=== PATIENT | female | born 1945 | race Caucasian/White ===

== ENCOUNTER → 2016-09-07 | Outpatient (CLI) | payer OTHER, BC ==
[2016-09-07 17:54] LABS: MANUAL MICROSCOPIC REQUIRED? NO; REVIEW REQ? NO; URINE APPEARANCE CLEAR (CLEAR); URINE BILIRUBIN NEG (NEG); URINE COLOR YELLOW; URINE NITRITE NEG (NEG); URINE SPECIFIC GRAVITY 1.012 (1.000-1.030); UROBILINOGEN NEG (NEG)
[2016-09-07 18:21] LABS: ALT/SGPT 21 U/L (12-78); AMYLASE 35 U/L (25-115); AST/SGOT 11 U/L (15-37); BLOOD UREA NITROGEN 12 mg/dl (7-18); BUN/CREATININE RATIO 13.3 (10-20); CALCIUM 9.2 mg/dl (8.5-10.1); CARBON DIOXIDE 29 mmol/L (21-32); CHLORIDE 106 mmol/L (98-107); CREATININE 0.87 mg/dl (0.60-1.20); GLUCOSE 93 mg/dl (70-99); POTASSIUM 3.8 mmol/L (3.5-5.1); SODIUM 143 mmol/L (136-145)
[2016-09-07 18:24] LABS: ALKALINE PHOSPHATASE 91 U/L (45-117)
[2016-09-07 18:27] LABS: BASO % 0.3 %; BASO ABS # 0.02 K/uL (0-0.2); COMPLETE YES; EOS % 0.7 %; HEMATOCRIT 41.7 % (37-47); IG% 0.1 %; LYMPH % 28.7 %; LYMPH ABS # 2.02 K/uL (1.2-3.4); MEAN CELL VOLUME 92.9 fL (80-100); MEAN CORPUSCULAR HGB CONC 33.3 g/dl (32-36); MEAN PLATELET VOLUME 11.1 fL (7.4-10.4); MONO % 7.4 %; NEUT % 62.8 %; PLATELET COUNT 387 K/uL (130-400); RED BLOOD COUNT 4.49 M/uL (4.2-5.4); WHITE BLOOD COUNT 7.05 K/uL (4.8-10.8)
== END | disposition home or self-care (01) ==
LOC: C.LABMFLN 13:56
PROVIDERS: ATTEND Family Medicine
DX: R10.9 Unspecified abdominal pain (principal)

== ENCOUNTER → 2016-12-02 | Outpatient (CLI) | payer OTHER, BC ==
[2016-12-09 18:52] LABS: V-ZOSTER CULT NOT ISOLATED
== END | disposition home or self-care (01) ==
LOC: C.LABMFLN 14:22
PROVIDERS: ATTEND Family Medicine
DX: B02.9 Zoster without complications (principal)

== ENCOUNTER → 2017-01-25 | Outpatient (CLI) | payer OTHER, BC ==
--- NOTE | 2017-01-25 16:08 | MAMMOGRAPHY REPORT ---
BILATERAL DIGITAL SCREENING MAMMOGRAM WITH CAD: 01/25/2017 CLINICAL HISTORY: Routine screening. TECHNIQUE: Bilateral CC, MLO and repeat right MLO views were obtained. Current study was also evalua saqib with a Computer Aided Detection (CAD) system. COMPARISON: Comparison is made to exams dated: 12/18/2015 mammogram, 12/14/2014 mammogram, 12/12/2012 aleyda mogram, 12/13/2013 mammogram, 12/11/2011 mammogram - [facility], and 11/03/2010 mammogra m - [facility]. BREAST COMPOSITION: The tissue of both breasts is almost entirely fatty. FINDINGS: There are stable grouped calcifications in the right breast. No new suspicious mass, arch itectural distortion or cluster of microcalcifications is seen. IMPRESSION: ACR BI-RADS CATEGORY 1: NEGATIVE There is no mammographic evidence of malignancy. A 1 year screening mammogram is recommended. The pa tient will receive written notification of the results. Approximately 10% of breast cancers are not detected with mammography. A negative mammographic report should not delay biopsy if a clinically suggestive mass is present. Katina Watts M.D. ay/:01/25/2017 14:09:15 [employer] Systems Administrator: Azul CHEN(R)(M), [facility] letter sent: Normal 1/2 BI-RADS Code: ACR BI-RADS Category 1: Negative
== END | disposition home or self-care (01) ==
LOC: C.MAMM 13:18
PROVIDERS: ATTEND Family Medicine
DX: Z12.31 Encounter for screening mammogram for malignant neoplasm of breast (principal)

== ENCOUNTER → 2017-06-01 | Outpatient (CLI) | payer OTHER, BC ==
[~2017-06-01] MED LIST: CHOL1TAB46 PO; KETO1AER2 EXT; VSNOPS OPB; ZNTT/150 PO
[2017-06-01 13:11] LABS: ALT/SGPT 20 U/L (12-78); AST/SGOT 14 U/L (15-37); BLOOD UREA NITROGEN 12 mg/dl (7-18); CALCIUM 9.2 mg/dl (8.5-10.1); CARBON DIOXIDE 29 mmol/L (21-32); CREATININE 0.87 mg/dl (0.60-1.20); GLUCOSE 89 mg/dl (70-99); POTASSIUM 3.8 mmol/L (3.5-5.1); SODIUM 136 mmol/L (136-145)
[2017-06-01 13:14] LABS: CHOLESTEROL 210 mg/dl (0-200); LDL CHOLESTEROL CALCULATED 125 mg/dl
== END | disposition home or self-care (01) ==
LOC: C.LABMFLN 09:49
PROVIDERS: ATTEND Family Medicine
DX: E55.9 Vitamin D deficiency, unspecified (principal); E78.5 Hyperlipidemia, unspecified; I10 Essential (primary) hypertension; Z11.59 Encounter for screening for other viral diseases

== ENCOUNTER → 2017-09-20 | Day surgery (SDC) | payer OTHER, BC ==
[2017-05-11 13:59] VITALS: BMI 29.0
[2017-09-08 10:12] VITALS: Ht 154.9 cm; Wt 73.6 kg
[~2017-09-20] VITALS: Ht 154.9 cm; Wt 73.6 kg
[~2017-09-20] MED LIST changes: +LIDOCAINE HCL 2% 2 ML VIAL (20MG/ML) ONE; +METR0.7536 TD; +MISCCAP80 PO; +ONDANSETRON INJ 2 MG/ML 2 ML VIAL ONE; +PROPOFOL IV EMULSION 10 MG/ML 20 ML VIAL ONE; +RANI150T85 PO; +SODIUM CHLORIDE 0.9% 500ML 500 ML IV ONE; -ZNTT/150 PO
--- NOTE | 2017-09-20 08:34 | Endo History and Physical ---
History & Physical Date of Service: September 20, 2017. Chief Complaint: Abdominal pain, Chronic Constipation Referring Physician: Junior Hernandez History of Present Illness 72 yo CF who presents for colonoscopy secondary to abdominal pain and chronic constipation. Past Surgical History Hx Cardiac Surgery: No Hx Internal Defibrillator: No Hx Pacemaker: No Hx Abdominal Surgery: Yes (VAGINAL HYSTERECTOMY/BLADDER SUSPENSION, ) Hx of Implantable Prosthesis: No Hx Post-Op Nausea and Vomiting: No Hx Cancer Surgery: No Hx Thoracic Surgery: No Hx Orthopedic: Yes (CERVICAL FUSION) Hx Urinary Tract Surgery: Yes (RECTOCELE REPAIR, CYSTOCELE REPAIR) Family History None Social History Smoking Status: Former Smoker Hx Substance Use: No Hx Alcohol Use: No Allergies Coded Allergies: Ciprofloxacin (Verified Allergy, Unknown, SOB, NAUSEA, 09/20/17) Sulfamethoxazole w/Trimethoprim (Verified Allergy, Unknown, MOUTH ULCERS, 09/20/17) Uncoded Allergies: RAW ONION (Allergy, Unknown, ITCHING HANDS/FEET, 05/11/17) Current Medications Reported Home Medications Medications Dose Route/Sig Max Daily Dose Days Date Category Probiotic (Probiotic Product) 1 Cap Cap 1 Cap PO DAILY 09/08/17 Reported Metronidazole (Metronidazole (Topical)) 1 % Gel TD BID 09/08/17 Reported Vitamin D3 (Cholecalciferol) 5,000 Unit Tab 1 Tab PO QAM 05/11/17 Reported Extina (Ketoconazole (Topical)) 2 % Aer 1 Dose EXT DAILY PRN 05/11/17 Reported Visine (Tetrahydrozoline Hcl (Ophth)) 0.05 % Carly 1 Drop OPB HS PRN 05/11/17 Reported Zantac (Ranitidine HCl) 150 Mg Tab 150 Mg PO BID 05/11/17 Reported Vital Signs Weight (Kilograms): 73.64 Height (Feet): 5 Height (Inches): 1 Date Time Temp Pulse Resp B/P (MAP) Pulse Ox O2 Delivery O2 Flow Rate FiO2 09/20/17 08:26 37.2 96 20 171/108 (129) 100 Room Air Physical Exam General Appearance: WD/WN, no apparent distress Respiratory/Chest: Auscultation: breath sounds normal Cardiovascular: Heart Auscultation: RRR Abdomen: Bowel Sounds: normal Inspection & Palpation: soft, non-distended, no tenderness, guarding & rebound Assessment and Plan Assessment: 72 yo CF who presents for colonoscopy secondary to abdominal pain and chronic constipation. Plan: Proceed with colonoscopy.
--- NOTE | 2017-09-20 09:25 | Discharge Instructions ---
Endoscopy Patient Instructions Date / Procedure(s) Performed September 20, 2017. Colonoscopy Allergy Information Coded Allergies: Ciprofloxacin (Verified Allergy, Unknown, SOB, NAUSEA, 09/20/17) Sulfamethoxazole w/Trimethoprim (Verified Allergy, Unknown, MOUTH ULCERS, 09/20/17) Uncoded Allergies: RAW ONION (Allergy, Unknown, ITCHING HANDS/FEET, 05/11/17) Discharge Date / Findings September 20, 2017. Diverticulosis Internal hemorrhoids Medication Instructions OK to resume all medications today as prescribed Reported Home Medications Medications Dose Route/Sig Max Daily Dose Days Date Category Probiotic (Probiotic Product) 1 Cap Cap 1 Cap PO DAILY 09/08/17 Reported Metronidazole (Metronidazole (Topical)) 1 % Gel TD BID 09/08/17 Reported Vitamin D3 (Cholecalciferol) 5,000 Unit Tab 1 Tab PO QAM 05/11/17 Reported Extina (Ketoconazole (Topical)) 2 % Aer 1 Dose EXT DAILY PRN 05/11/17 Reported Visine (Tetrahydrozoline Hcl (Ophth)) 0.05 % Carly 1 Drop OPB HS PRN 05/11/17 Reported Zantac (Ranitidine HCl) 150 Mg Tab 150 Mg PO BID 05/11/17 Reported Provider Instructions Activity Restrictions - No exercising or heavy lifting for 24 hours. - Do not drink alcohol the day of the procedure. - Do not drive a car or operate machinery until the day after the procedure. - Do not make any important decisions or sign important papers in 24 hours after the procedure. Following Day: - Return to full activity which may include returning to work/school. Diet Start your diet with liquids and light foods (jello, soup, juice, toast). Then eat your usual diet if not nauseated. Treatment For Common After Affects For mild abdominal pain, bloating, or excessive gas: - Rest - Eat lightly - Lie on right side Follow-Up Information Follow-up with Junior Hernandez as scheduled Anesthesia Information What You Should Know You have had a procedure that required some medicine to reduce anxiety and discomfort. This treatment is called moderate sedation. After receiving the treatment, you may be sleepy, but you will be able to breathe on your own. The effects of the treatment may last for several hours. Follow these instructions along with Activity/Diet recommendations noted above: * Do NOT do anything where dizziness or clumsiness would be dangerous. * Rest quietly at home today, then you can be up and about tomorrow. * Have a responsible person stay with you the rest of today. * You may have had an I.V. today. If so, you may take the dressing off later today. Recommendations Call your doctor if: * Trouble breathing * Continuous vomiting for more than 24 hours * Temperature above 101 degrees * Severe abdominal pain or bloating * Pain not relieved by pain medicine ordered * There is increased drainage or redness from any incision * A large amount of rectal bleeding greater than 2-3 tablespoons. (If you had a polyp/s removed or have hemorrhoids, a small amount of blood - from the rectum is to be expected.) * You have any unanswered questions or concerns. IN THE EVENT OF A SERIOUS EMERGENCY, GO TO THE NEAREST EMERGENCY ROOM Your discharge instructions were prepared by provider John Nichole. Patient Instructions Signature Page Yennifer Frost Patient (or Guardian) Signature/Date: I have read and understand the instructions given to me by my caregivers. Caregiver/RN/Doctor Signature/Date: The above-named patient and/or guardian has received patient instructions on this date. + Original Patient Signature Page (only) stays with chart. Please make copy for patient.
--- NOTE | 2017-09-20 09:29 | GI REPORT ---
Patient Name: Yennifer Frost Procedure Date: 09/20/2017 8:16 AM Date of : 1945 Admit Type: Outpatient Age: 72 Gender: Female Attending MD: John Nichole DO Procedure: Colonoscopy Providers: John Nichole DO Referring MD: Junior Hernandez Indications: Generalized abdominal pain Medicines: Monitored Anesthesia Care Complications: No immediate complications. Estimated Blood Loss: Estimated blood loss: none. Procedure: Pre-Anesthesia Assessment: - Prior to the procedure, a History and Physical was performed, and patient medications and allergies were reviewed. The patient's tolerance of previous anesthesia was also reviewed. The risks and benefits of the procedure and the sedation options and risks were discussed with the patient. All questions were answered, and informed consent was obtained. Prior Anticoagulants: The patient has taken no previous anticoagulant or antiplatelet agents. ASA Grade Assessment: II - A patient with mild systemic disease. After reviewing the risks and benefits, the patient was deemed in satisfactory condition to undergo the procedure. After I obtained informed consent, the scope was passed under direct vision. Throughout the procedure, the patient's blood pressure, pulse, and oxygen saturations were monitored continuously. The scope was introduced through the anus and advanced to the terminal ileum. The colonoscopy was performed without difficulty. The patient tolerated the procedure well. The quality of the bowel preparation was good. The terminal ileum, ileocecal valve, appendiceal orifice, and rectum were photographed. Findings: The perianal and digital rectal examinations were normal. Multiple small-mouthed diverticula were found in the sigmoid colon. Non-bleeding internal hemorrhoids were found during retroflexion. The hemorrhoids were small. Impression: - Diverticulosis in the sigmoid colon. - Non-bleeding internal hemorrhoids. - No specimens collected. Recommendation: - Resume previous diet. - Continue present medications. - Repeat colonoscopy in 10 years for surveillance. - Return to primary care physician as previously scheduled. John Nichole DO 09/20/2017 9:28:53 AM This report has been signed electronically. Note Initiated On: 09/20/2017 8:16 AM Number of Addenda: 0 I attest to the content of the Intraoperative Record and orders documented therein, exceptions below {[id number]}
[2017-09-20 09:55] VITALS: BP 157/100; PULSE 68; O2SAT 98
--- NOTE | 2017-09-20 10:38 | DIAGNOSTIC IMAGING REPORT ---
ABDOMEN 2VIEW W/PA CHEST RTN CLINICAL HISTORY: Pain post-colonoscopy COMPARISON STUDY: No previous studies for comparison. FINDINGS: The erect chest reveals no free air. There is no focal pulmonary consolidation. Supine and decubitus views the abdomen reveal gaseous distention of the colon. There are no transition zones indicate bowel obstruction. IMPRESSION: 1. Gaseous distention of the colon 2. No evidence of free air Electronically signed by: Anderson Estrella M.D. 09/20/2017 10:36 AM Dictated Date/Time: 09/20/2017 10:35 AM
--- NOTE | 2017-09-20 10:54 | Anesthesiology Progress Note ---
Anesthesia Post Op Note Date & Time September 20, 2017 at 10:54 Vital Signs Pain Intensity: 8 Vital Signs Past 12 Hours Date Time Temp Pulse Resp B/P (MAP) Pulse Ox O2 Delivery O2 Flow Rate FiO2 09/20/17 09:55 68 20 157/100 (119) 98 Room Air 09/20/17 09:38 73 20 125/75 (92) 96 Room Air 09/20/17 09:21 74 20 148/97 (114) 100 Room Air 09/20/17 08:26 37.2 96 20 171/108 (129) 100 Room Air Notes Mental Status: alert / awake / arousable, participated in evaluation Pt Amnestic to Procedure: Yes Nausea / Vomiting: adequately controlled Pain: adequately controlled Airway Patency, RR, SpO2: stable & adequate BP & HR: stable & adequate Hydration State: stable & adequate Anesthetic Complications: no major complications apparent
== END | disposition home or self-care (01) ==
LOC: C.GI 07:39
PROVIDERS: ATTEND Internal Medicine
DX: R10.9 Unspecified abdominal pain (principal); K59.09 Other constipation; K57.30 Diverticulosis of large intestine without perforation or abscess without bleeding; K64.8 Other hemorrhoids; K21.9 Gastro-esophageal reflux disease without esophagitis; R33.9 Retention of urine, unspecified; M19.90 Unspecified osteoarthritis, unspecified site; F41.9 Anxiety disorder, unspecified; Z98.1 Arthrodesis status; Z87.891 Personal history of nicotine dependence; Z88.1 Allergy status to other antibiotic agents; Z88.2 Allergy status to sulfonamides

== ENCOUNTER 2022-04-01 06:14 | Observation (INO) ==
--- NOTE | 2021-11-19 10:55 | PAT Medication Instructions ---
Medication Instructions Date of Service November 19, 2021 Home Medications Medication Instructions Recorded carboxymethylcellulose sodium 1 % 1 drp ophthalmic (eye) QPM #15 mL 10/30/18 eye liquid gel drops (Refresh Liquigel) cholecalciferol (vitamin D3) 125 5,000 unit PO QAM #90 tabs 10/30/18 mcg (5,000 unit) tablet (Vitamin D3) clobetasol 0.05 % topical ointment 1 applic topical BID PRN 08/20/20 irritation #15 grams famotidine 20 mg tablet 20 mg PO BID #180 tabs 09/10/21 lovastatin 10 mg tablet 10 mg PO QPM #90 tabs 09/10/21 meloxicam 15 mg tablet 15 mg PO DAILY PRN pain #90 tabs 09/10/21 nystatin 100,000 unit/gram topical 1 applic topical BID PRN rash #30 09/10/21 cream grams carboxymethylcellulose sodium 1 % eye liquid gel drops (Refresh Liquigel) 1 drp ophthalmic (eye) QPM cholecalciferol (vitamin D3) 125 mcg (5,000 unit) tablet (Vitamin D3) 5,000 unit PO QAM clobetasol 0.05 % topical ointment 1 applic topical BID PRN famotidine 20 mg tablet 20 mg PO BID lovastatin 10 mg tablet 10 mg PO QPM meloxicam 15 mg tablet 15 mg PO DAILY PRN nystatin 100,000 unit/gram topical cream 1 applic topical BID PRN ASK your surgeon for instructions meloxicam 15 mg tablet 15 mg PO DAILY PRN STOP taking 24 hours before surgery clobetasol 0.05 % topical ointment 1 applic topical BID PRN nystatin 100,000 unit/gram topical cream 1 applic topical BID PRN DO NOT take the morning of surgery cholecalciferol (vitamin D3) 125 mcg (5,000 unit) tablet (Vitamin D3) 5,000 unit PO QAM Take morning of surgery With a small sip of water, OTHERWISE NOTHING TO EAT OR DRINK AFTER MIDNIGHT: famotidine 20 mg tablet 20 mg PO BID Take evening before surgery carboxymethylcellulose sodium 1 % eye liquid gel drops (Refresh Liquigel) 1 drp ophthalmic (eye) QPM famotidine 20 mg tablet 20 mg PO BID lovastatin 10 mg tablet 10 mg PO QPM Other Notes If you have any questions please call us at [phone] or [phone] or or [phone]
--- NOTE | 2021-11-24 11:12 | Anesthesiology Consultation ---
Date of Service November 24, 2021 Assessment & Plan (1) Encounter for pre-operative examination: - pending PCP pre-op evaluation. - possible difficult intubation s/p cervical fusion. - COVID screening: Per assessment on 11/24/2021: Travel screen negative, no known COVID-19 positive contacts or current COVID-19 related symptoms in past 2 weeks. Pt vaccinated. Surgeon arranging preop COVID testing, scheduled 12/15/2021. Awaiting results. Chart Review Chart Review: Pending: Refer to Additional Notes / Consult section and Patient seen in Pre Admission Testing Teaching & Discussion Pre-Anesthesia Teaching/Discussion Notes: Instructed NPO after midnight before surgery, except medications with 15 cc of water. Medication instructions provided according to the PAT guidelines. History Surgery Operation Date: 12/17/21 07:00 Proposed Procedures p Right Total Hip Arthroplasty - Fish Grimaldo MD Height/Weight Height: 5 ft 2 in Weight: 75.2 kg Allergies Allergy/AdvReac Type Severity Reaction Status Date / Time ciprofloxacin Allergy Mild SOB, NAUSEA Verified 11/24/21 11:11 sulfamethoxazole Allergy Mild MOUTH Verified 11/24/21 11:11 ULCERS trimethoprim Allergy Mild MOUTH Verified 11/24/21 11:11 ULCERS Bactrim Allergy Unknown MOUTH Verified 09/20/17 08:14 ULCERS onion AdvReac Mild Itching Verified 11/24/21 11:11 hands/feet - raw onion Medications Home Medications Medication Instructions Recorded Confirmed Last Taken carboxymethylcellulose sodium 1 % 1 drp ophthalmic (eye) QPM #15 mL 10/30/18 11/13/21 Unknown eye liquid gel drops (Refresh Liquigel) cholecalciferol (vitamin D3) 125 5,000 unit PO QAM #90 tabs 10/30/18 11/13/21 Unknown mcg (5,000 unit) tablet (Vitamin D3) clobetasol 0.05 % topical ointment 1 applic topical BID PRN 08/20/20 11/13/21 Unknown irritation #15 grams famotidine 20 mg tablet 20 mg PO BID #180 tabs 09/10/21 11/13/21 Unknown lovastatin 10 mg tablet 10 mg PO QPM #90 tabs 09/10/21 11/13/21 Unknown meloxicam 15 mg tablet 15 mg PO DAILY PRN pain #90 tabs 09/10/21 11/13/21 Unknown nystatin 100,000 unit/gram topical 1 applic topical BID PRN rash #30 09/10/21 11/13/21 Unknown cream grams Past Medical History Medical History (Updated 11/24/21 @ 11:57 by Asia Beal PA-C) 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 Exercise / Class Metabolic Activity II 4-5 Yardwork/Stairs/Walk up hill (denies CP or SOB with 1 FOS) Past Family History Family History Grandfather (Maternal) Myocardial infarction Mother Alzheimer disease Grandmother (Maternal) Dementia Past Surgical History Surgical History (Updated 11/24/21 @ 11:50 by Asia Beal PA-C) History of adenoidectomy History of cataract surgery R/L History of colonoscopy History of cystocele surgically repaired History of esophagogastroduodenoscopy (EGD) History of hysterectomy uterus and tubes removed, VAGINAL-rectocele repair and baldder tack all in one surgery History of tonsillectomy Hx of fusion of cervical spine 2016 Hx of urethrotomy Hx of vitrectomy Nausea and vomiting after administration of anesthetic agent denies needing scop patch Past Anesthesia History No Family Hx of Anesthesia Complications and Other (post-op urinary retention requiring catheterization) History of PONV No Hx of Motion Sickness and History of PONV (denies needing scop patch) Social History Smoking Status: Former smoker Do You Dip or Chew Tobacco: No Smoking End Date: QUIT 45 YRS AGO Hx Alcohol Use: No Hx Substance Use: No Review of Systems Patient denies chest pain, shortness of breath, dyspnea on exertion, snoring, witnessed apneas, fever, chills, cough, wheezing, or palpitations. Physical Exam Vital Signs Vitals BP 165/94 (states home readings are 120-140s/70-80s) P 77 TEMP 98.9 SP02 99% on RA RESP 17 Physical Limited cervical extension range of motion without pain TMD 3.5 finger breaths Mallampati Score 2 Dentition: intact, several caps/crowns upper and lower sides bilat; denies chipped or loose teeth, implants or bridges Lungs: normal respiratory effort. Clear throughout to auscultation, no adventitious breath sounds Cardiac: regular rate and rhythm, no murmurs noted Carotid arteries: negative bruit bilat Lab Results Anesthesia Preop Results Results Anesthesia Widget: WBC 6.25 K/ul (4.8-10.8) 11/24/21 Hgb 14.0 g/dl (12.0-16.0) 11/24/21 Hct 42.2 % (34.1-44.9) 11/24/21 Plt 300 K/uL (130-400) 11/24/21 Na 140 mmol/L (136-145) 11/24/21 K 4.4 mmol/L (3.5-5.1) 11/24/21 Cl 106 mmol/L (98-107) 11/24/21 CO2 30 mmol/L (21-32) 11/24/21 BUN 19 mg/dl (6-23) 11/24/21 Creat 0.87 mg/dl (0.6-1.2) 11/24/21 Glucose Level 101 mg/dl (70-99(Fasting)) H 11/24/21 PT 10.4 Seconds (9.0-12.0) 11/24/21 PTT 27.0 Seconds (21.0-31.0) 11/24/21 INR 1.0 (0.9-1.1) 11/24/21 Urine Color Yellow 11/24/21 Urine Appearance Clear (Clear) 11/24/21 Urine pH 6.0 (4.5-7.5) 11/24/21 Urine Specific [place] 1.012 (1.000-1.030) 11/24/21 Urine Protein Negative (Negative) 11/24/21 Urine Glucose (UA) Negative (Negative) 11/24/21 Urine Ketones Negative (Negative) 11/24/21 Urine Blood Negative (Negative) 11/24/21 Urine Nitrite Negative (Negative) 11/24/21 Urine Bilirubin Negative (Negative) 11/24/21 Urine Urobilinogen Negative (Negative) 11/24/21 Urine Leukocyte Esterase Negative (Negative) 11/24/21 Blood Type A Positive 11/24/21 Antibody Screen NEGATIVE 11/24/21 Testing Electrocardiogram Date: 11/24/21 NSR, rate 73 bpm Left anterior fascicular block LVH with QRS widening Chest X-Ray Date: 11/24/21 No lines and tubes are seen. The cardiomediastinal silhouette is normal. The lungs are clear. No evidence of pleural effusion or pneumothorax. Partial visualization of cervical fixation hardware. IMPRESSION: No acute chest disease. Cervical Spine Date: 11/24/21 x-ray Bones: The patient is status post anterior plate and screw fixation from C5 through C7. On the neutral lateral radiograph, the vertebral bodies are in anatomic alignment. There is no change in vertebral body alignment with flexion or extension. There is no evidence for fracture or malalignment. The heights of the vertebral bodies are maintained. There are no lytic or blastic lesions present. Disc spaces: There is moderate disc space narrowing at C4-5, disc space level above the spinal fusion. Apophyseal joints: Degenerative apophyseal joint disease is also seen at the 2 levels above the spinal fusion. Soft tissues: The paraspinal soft tissues are within normal limits. IMPRESSION: 1. No acute abnormality. 2. Evidence for stable spine fusion. 3. Degenerative disc and degenerative joint disease.
--- NOTE | 2021-11-26 16:52 | History & Physical Report ---
Date of Service November 26, 2021 Assessment & Plan (1) Degenerative joint disease of right hip: Plan: Postoperative prescriptions for Coumadin and Percocet will be provided at discharge from the hospital. Anticipate discharge to home with home health services. She would like to attend PT here after her home health is completed. Prescription was also written. The patient will attend PAT today for her preoperative lab work, EKG, and chest x-ray. She has an appointment to see her PCP, Dr. Hernandez, later this week for medical clearance. She is aware of the COVID-19 risks associated with surgery. She is currently asymptomatic of any COVID-19 symptoms. She will obtain nasal swab testing 2 days prior to surgery. PDMP was checked and there are no concerning findings. She already has access to a walker and cane. Postop appointment has been made for 01/01 at 2:00 p.m. for staple removal. History of Present Illness Chief Complaint: Right hip pain Primary Care Provider: Junior Hernandez MD This 76-year-old female presents with her , for her preoperative history and physical. She is scheduled to undergo a right total hip arthroplasty on 12/17/2021. The patient has had a longstanding history of right hip pain. Symptoms have been ongoing for over a year. They have become worse over the last few months. 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 She was treated with traction for several months. She stated her leg has always felt weak. She did a lot of running in her younger years to help with strengthening. She is not able to do that anymore. No recent trauma. She denies any numbness or tingling. Hip pain does affect her ADLs. She has difficulty with sleep. She also has worse pain with ambulating. No numbness or tingling. Preoperative imaging has been obtained. Allergies Allergy/AdvReac Type Severity Reaction Status Date / Time ciprofloxacin Allergy Mild SOB, NAUSEA Verified 11/24/21 11:11 sulfamethoxazole Allergy Mild MOUTH Verified 11/24/21 11:11 ULCERS trimethoprim Allergy Mild MOUTH Verified 11/24/21 11:11 ULCERS Bactrim Allergy Unknown MOUTH Verified 09/20/17 08:14 ULCERS onion AdvReac Mild Itching Verified 11/24/21 11:11 hands/feet - raw onion Home Medications Medication Instructions Recorded Confirmed Type carboxymethylcellulose sodium 1 % 1 drp ophthalmic (eye) QPM #15 mL 10/30/18 11/13/21 Rx eye liquid gel drops (Refresh Liquigel) cholecalciferol (vitamin D3) 125 5,000 unit PO QAM #90 tabs 10/30/18 11/13/21 Rx mcg (5,000 unit) tablet (Vitamin D3) clobetasol 0.05 % topical ointment 1 applic topical BID PRN 08/20/20 11/13/21 Rx irritation #15 grams famotidine 20 mg tablet 20 mg PO BID #180 tabs 09/10/21 11/13/21 Rx lovastatin 10 mg tablet 10 mg PO QPM #90 tabs 09/10/21 11/13/21 Rx meloxicam 15 mg tablet 15 mg PO DAILY PRN pain #90 tabs 09/10/21 11/13/21 Rx nystatin 100,000 unit/gram topical 1 applic topical BID PRN rash #30 09/10/21 11/13/21 Rx cream grams Past Med/Surg History Medical History Cancer basal cell - nose - had mohs procedure Diverticular disease denies hx diverticulitis GERD (gastroesophageal reflux disease) occasional, controlled if diet controlled, stable per pt Hx of rosacea no current flare up Hyperlipidemia Postoperative urinary retention Rheumatoid arthritis Pt denies formal testing Surgical History History of adenoidectomy History of cataract surgery R/L History of colonoscopy History of cystocele surgically repaired History of esophagogastroduodenoscopy (EGD) History of hysterectomy uterus and tubes removed, VAGINAL-rectocele repair and baldder tack all in one surgery History of tonsillectomy Hx of fusion of cervical spine 2016 Hx of urethrotomy Hx of vitrectomy Nausea and vomiting after administration of anesthetic agent denies needing scop patch Family History Grandfather (Maternal) Myocardial infarction Mother Alzheimer disease Grandmother (Maternal) Dementia Social History Smoking Status: Former smoker Second Hand Exposure: No; Hx Alcohol Use: No Hx Substance Use: No Preferred Language: Uzbek Communication Ability: Effective Language Path Required: No Beliefs That Will Affect Care: None Current Living Situation: Spouse current occupational status: retired Feels Safe at Home: Yes Seatbelt Use: always Assistive Devices: Cane and Glasses Review of Systems Review of Systems: All systems reviewed & are unremarkable except as noted in HPI & below A total of 10 systems were reviewed. Physical Exam Physical Exam: Vitals: Height 136.5 cm, weight 75.4 kilograms, BMI 30.8. Temperature 36.0, pulse 89, O2 sat 98% on room air, BP is 131/88. General: Well-developed, well-nourished, elderly white female in no acute distress. Sitting in a chair. Alert and oriented. Somewhat anxious. Skin: Warm and dry with good turgor. No rashes or lesions. No ecchymosis or erythema. No intraarticular effusion. HEENT: Normocephalic, atraumatic. Eyes: PERRLA, EOMI. Nares and oropharynx exams deferred due to COVID precautions. Heart: RRR. No MGR. She is tachycardic. LUNGS: Clear to auscultation bilaterally. No crackles, rhonchi or wheezing. Good air movement. Abdomen: Mildly obese. Bowel sounds present x4. Soft, nontender. No organomegaly. No masses. Musculoskeletal: Right hip evaluation reveals no obvious asymmetry or deformity. She does have some limitation in flexion as well as internal and external rotation secondary to pain. External rotation of around 35 degrees before onset of pain. Internal rotation of only about 10 degrees before onset of pain. Hip flexion to around 100 degrees before onset of pain. No pain with palpation over her IT band, greater trochanter, or SI joint. Ambulating today with a slightly antalgic gait. Strength is 4+/5 for resisted hip flexion and abduction. Neurologic: Gross sensation is intact across the right leg by soft touch. Peripheral pulses are 2+. Results & Data Results & Data ([facility]) Diagnostic Findings Radiographic imaging previously obtained shows significant DJD of the right hip. Joint space narrowing, periarticular osteophytes and subchondral sclerosis are all present. Code Status & VTE Plan VTE Prophylaxis Plan VTE Prophylaxis will be ordered: Yes
--- NOTE | 2022-03-30 14:30 | Anesthesiology Consultation ---
Date of Service March 30, 2022 Assessment & Plan (1) Encounter for pre-operative examination: Plan - urine culture pending-surgeon's office made aware, they will further f/u on result. - possible difficult intubation s/p cervical spine fusion. - PCP pre-op 03/11/22 [place]: "...According to the [place] [employer]/[place] [employer] guidelines you are at low risk heart or lung event with upcoming surgery. As long as there is no urinary tract infection there are no contraindications to proceeding with surgery..." - Outpatient joint assessment: Patient is currently scheduled for inpatient pathway. If re-evaluated pending system levels during current pandemic/surgeon requests outpatient pathway, patient is not recommended candidate from anesthesia standpoint. - COVID screening: Per plate molder on 03/26/2022: Travel screen negative, no known COVID-19 positive contacts or current COVID-19 related symptoms in past 2 weeks. To surgeon's discretion if preop COVID testing is needed. Chart Review Chart Review: Acceptable Risk for Surgery and Patient NOT seen in Pre Admission Testing History Surgery Operation Date: 04/01/22 09:00 Proposed Procedures p Right Total Hip Arthroplasty - Fish Grimaldo MD Height/Weight Height: 5 ft 2 in Weight: 75.2 kg Allergies Allergy/AdvReac Type Severity Reaction Status Date / Time ciprofloxacin Allergy Mild SOB, NAUSEA Verified 03/26/22 13:10 sulfamethoxazole Allergy Mild MOUTH Verified 03/26/22 13:10 ULCERS trimethoprim Allergy Mild MOUTH Verified 03/26/22 13:10 ULCERS Bactrim Allergy Unknown MOUTH Verified 09/20/17 08:14 ULCERS onion AdvReac Mild Itching Verified 03/26/22 13:10 hands/feet - raw onion Medications Home Medications Medication Instructions Recorded Confirmed Last Taken carboxymethylcellulose sodium 1 % 1 drp ophthalmic (eye) QPM #15 mL 10/30/18 03/11/22 Unknown eye liquid gel drops (Refresh Liquigel) cholecalciferol (vitamin D3) 125 5,000 unit PO QAM #90 tabs 10/30/18 03/11/22 Unknown mcg (5,000 unit) tablet (Vitamin D3) famotidine 20 mg tablet 20 mg PO BID #180 tabs 09/10/21 03/11/22 Unknown lovastatin 10 mg tablet 10 mg PO QPM #90 tabs 09/10/21 03/11/22 Unknown nystatin 100,000 unit/gram topical 1 applic topical BID PRN rash #30 09/10/21 03/11/22 Unknown cream grams meloxicam 15 mg tablet 15 mg PO DAILY PRN pain #90 tabs 12/03/21 03/26/22 Unknown metronidazole 0.75 % topical cream 1 applic topical DAILY #45 grams 12/03/21 03/26/22 Unknown metoprolol succinate 25 mg 25 mg PO QPM 12/12/21 03/26/22 Unknown tablet,extended release 24 hr triamcinolone acetonide 0.1 % 1 applic topical DAILY #30 grams 03/10/22 03/26/22 Unknown topical ointment Past Medical History Medical History (Updated 03/30/22 @ 14:51 by Asia Beal PA-C) Atrophic vulvovaginitis continues using cream as prescribed- symptoms improving Cancer basal cell - nose - had mohs procedure Diverticular disease denies hx diverticulitis Dysuria GERD (gastroesophageal reflux disease) occasional, controlled if diet controlled, stable per pt Hx of rosacea no current flare up Hyperlipidemia Postoperative urinary retention Rheumatoid arthritis Pt denies formal testing Past Family History Family History Grandfather (Maternal) Myocardial infarction Mother Alzheimer disease Grandmother (Maternal) Dementia Denies family history of Ovarian cancer Breast cancer Colorectal cancer Past Surgical History Surgical History History of adenoidectomy History of cataract surgery R/L History of colonoscopy History of cystocele surgically repaired History of esophagogastroduodenoscopy (EGD) History of hysterectomy uterus and tubes removed, VAGINAL-rectocele repair and baldder tack all in one surgery History of tonsillectomy Hx of fusion of cervical spine 2016 Hx of urethrotomy Hx of vitrectomy Nausea and vomiting after administration of anesthetic agent denies needing scop patch Social History Smoking Status: Former smoker Do You Dip or Chew Tobacco: No Smoking End Date: QUIT 45 YRS AGO Hx Alcohol Use: No Hx Substance Use: No substance use type: does not use Lab Results Anesthesia Preop Results Results Anesthesia Widget: WBC 6.75 K/ul (4.8-10.8) 03/30/22 Hgb 13.3 g/dl (12.0-16.0) 03/30/22 Hct 40.5 % (34.1-44.9) 03/30/22 Plt 346 K/uL (130-400) 03/30/22 Na 140 mmol/L (136-145) 03/30/22 K 3.8 mmol/L (3.5-5.1) 03/30/22 Cl 105 mmol/L (98-107) 03/30/22 CO2 26 mmol/L (21-32) 03/30/22 BUN 11 mg/dl (6-23) 03/30/22 Creat 0.85 mg/dl (0.6-1.2) 03/30/22 Glucose Level 89 mg/dl (70-99(Fasting)) 03/30/22 PT 10.8 Seconds (9.0-12.0) 03/30/22 PTT 28.6 Seconds (21.0-31.0) 03/30/22 INR 1.0 (0.9-1.1) 03/30/22 Urine Color Yellow 03/30/22 Urine Appearance Clear (Clear) 03/30/22 Urine pH 5.5 (4.5-7.5) 03/30/22 Urine Specific [place] 1.007 (1.000-1.030) 03/30/22 Urine Protein Negative (Negative) 03/30/22 Urine Glucose (UA) Negative (Negative) 03/30/22 Urine Ketones Negative (Negative) 03/30/22 Urine Blood Negative (Negative) 03/30/22 Urine Nitrite Negative (Negative) 03/30/22 Urine Bilirubin Negative (Negative) 03/30/22 Urine Urobilinogen Negative (Negative) 03/30/22 Urine Leukocyte Esterase Negative (Negative) 03/30/22 Blood Type A Positive 03/30/22 Antibody Screen NEGATIVE 03/30/22 Testing Electrocardiogram Date: 11/24/21 NSR, rate 73 bpm Left anterior fascicular block LVH with QRS widening Chest X-Ray Date: 11/24/21 No lines and tubes are seen. The cardiomediastinal silhouette is normal. The lungs are clear. No evidence of pleural effusion or pneumothorax. Partial visualization of cervical fixation hardware. IMPRESSION: No acute chest disease. Cervical Spine Date: 07/18/22 x-ray Bones: The patient is status post anterior plate and screw fixation from C5 through C7. On the neutral lateral radiograph, the vertebral bodies are in an atomic alignment. There is no change in vertebral body alignment with flexion or extension. There is no evidence for fracture or malalignment. The heights of the vertebral bodies are maintained. There are no lytic or blastic lesions present. Disc spaces: There is moderate disc space narrowing at C4-5, disc space level above the spinal fusion. Apophyseal joints: Degenerative apophyseal joint disease is also seen at the 2 levels above the spinal fusion. Soft tissues: The paraspinal soft tissues are within normal limits. IMPRESSION: 1. No acute abnormality. 2. Evidence for stable spine fusion. 3. Degenerative disc and degenerative joint disease.
[~2022-04-01 06:14] MED LIST changes: -CHOL1TAB46 PO; -KETO1AER2 EXT; -LIDOCAINE HCL 2% 2 ML VIAL (20MG/ML) ONE; +LR 500ML BOLUS, THEN 15ML/HR IV SCH; +LR 60ML/HR IV SCH; -METR0.7536 TD; -MISCCAP80 PO; -ONDANSETRON INJ 2 MG/ML 2 ML VIAL ONE; -PROPOFOL IV EMULSION 10 MG/ML 20 ML VIAL ONE; -RANI150T85 PO; +ROPIVACAINE 0.5% HCL/PF 150 MG, BUPIVACAINE 0.75% MPF 20 ML, EPINEPHrine 0.15 MG, Ketor... INFIL SCH; -SODIUM CHLORIDE 0.9% 500ML 500 ML IV ONE; +TRANEXAMIC ACID 1,000 MG **IV Pre-op IV SCH; -VSNOPS OPB; +ceFAZolin 2000MG 2,000 MG/15 ML SYR IV SCH
--- NOTE | 2022-04-01 06:23 | History & Physical Bridge Note ---
Date of Service April 01, 2022 History & Physical Bridge Note I have examined the patient, reviewed the History & Physical and in the interval since the performance of the History & Physical I have noted the following changes of clinical significance: no changes noted
[2022-04-01] MEDS ORDERED: BUPIVACAINE 0.5 % 5 MG/1 ML PF 10ML VIAL ONE (07:05)
[2022-04-01] MEDS ORDERED: SCOPOLAMINE 1 MG TDSY TD ONE ×2 (07:13→07:16)
[2022-04-01] MEDS ORDERED: MIDAZOLAM HCL 1 MG/ML 2ML VIAL ONE (07:23)
[2022-04-01] MEDS ORDERED: fentaNYL citrate 100 MCG/2 ML VIAL ONE (07:23)
[2022-04-01] MEDS ORDERED: ORTHO JOINT ANESTHETIC ONE (08:53)
--- NOTE | 2022-04-01 09:06 | Discharge Summary (DS) ---
DATE OF ADMISSION: 04/01/2022 DATE OF POTENTIAL DISCHARGE: 04/02/2022 CHIEF COMPLAINT: Right hip pain. 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 Underwent elective right total hip replacement. PAST MEDICAL HISTORY: Remarkable for osteoarthritis, neck pain, GERD, skin cancer, rosacea, spinal s tenosis, diverticulosis, hyperlipidemia, borderline hypertension, and UTIs. PAST SURGICAL HISTORY: Remarkable for hysterectomy, bladder tacking, rectocele repair, neck fusion, vitrectomy, Mohs surgery, cystocele repair, ureterolithiasis, cataract surgery, breast cyst excision. ALLERGIES: CIPRO, BACTRIM, AND ONIONS. CIPRO CAUSES SHORTNESS OF BREATH AND NAUSEA. BACTRIM CAUSES ORAL BLISTERS. PREADMISSION MEDICATIONS: Include Tylenol, vitamin D, famotidine, lovastatin, meloxicam, nystatin p. r.n., Refresh eye drops. SOCIAL HISTORY: Reveals she is . No tobacco, quit 50 years ago. No alcohol use. REVIEW OF SYSTEMS: Noncontributory. ASSESSMENT: Status post right total hip replacement. Continue care pathway. Discharge to home. [place] venous thrombosis prophylaxis with Coumadin. Job ID: [id number]
[2022-04-01] MEDS ORDERED: KETAMINE 50 MG/5 ML SYRINGE ONE (09:09)
[2022-04-01] MEDS ORDERED: PROPOFOL IV EMULSION 10 MG/ML 20 ML VIAL IV ONE (09:23)
[2022-04-01] MEDS ORDERED: LIDOCAINE 2% MPF LOCAL 5 ML VIAL INFIL ONE (09:24)
[2022-04-01] MEDS ORDERED: DEXAMETHASONE SOD INJ 4 MG/ML VIAL ONE (09:24)
[2022-04-01] MEDS ORDERED: ONDANSETRON INJ 2 MG/ML 2 ML VIAL ONE (09:24)
[2022-04-01] MEDS ORDERED: ATROPINE SULFATE 0.1 MG/ML 10ML SYR IV PRN (09:32)
[2022-04-01] MEDS ORDERED: ePHEDrine sulfate 50 MG/ML AMP IV PRN (09:32)
[2022-04-01] MEDS ORDERED: FLUMAZENIL 0.1 MG/1 ML 10 ML VIAL IV PRN (09:32)
[2022-04-01] MEDS ORDERED: ONDANSETRON INJ 2 MG/ML 2 ML VIAL IV PRN ×2 (09:32→11:55)
[2022-04-01] MEDS ORDERED: PROMETHAZINE HCL 12.5 MG in SODIUM CHLORIDE 0.9% 50 ML IV PRN (09:32)
[2022-04-01] MEDS ORDERED: HYDROmorphone INJ 1 MG/ML SYRINGE IV PRN (09:32)
[2022-04-01] MEDS ORDERED: fentaNYL citrate 100 MCG/2 ML VIAL IV PRN (09:32)
[2022-04-01] MEDS ORDERED: NALOXONE HCL 0.4 MG/1 ML VIAL/CARP IV PRN ×2 (09:32→11:55)
[2022-04-01] MEDS ORDERED: ePHEDrine sulfate 50 MG/ML AMP ONE (09:36)
[2022-04-01] MEDS ORDERED: PHENYLEPHRINE 100MCG/ML 5ML SYR ONE (09:56)
--- NOTE | 2022-04-01 10:31 | Post Operative Brief Note ---
Immediate Post Op Note v1 Date of Surgery April 01, 2022 Pre & Post Diagnosis Operation Date: 04/01/22 08:50 Pre-Op Diagnosis: Right Hip Degenerative Joint Disease Post-Op Diagnosis: Right Hip Degenerative Joint Disease I identified the patient and participated in the time-out.: Yes Procedure Operation Date: 04/01/22 08:50 Actual Procedures p Right Total Hip Arthroplasty--Uncemented(Right) - Fish Grimaldo MD Surgeon Fish Grimaldo MD Business Office Specialist [facility] Estimated Blood Loss 100 Findings Consistent with Post-Op Diagnosis
--- NOTE | 2022-04-01 10:37 | Operative Report ---
Post Operative Report Pre & Post Diagnosis Operation Date: 04/01/22 08:50 Pre-Op Diagnosis: Right Hip Degenerative Joint Disease Post-Op Diagnosis: Right Hip Degenerative Joint Disease I identified the patient and participated in the time-out.: Yes Procedure Operation Date: 04/01/22 08:50 Actual Procedures p Right Total Hip Arthroplasty--Uncemented(Right) - Fish Grimaldo MD Surgeon ALESHA Grimaldo MD Process Development Manager Aubrey NAVARRO Estimated Blood Loss 100 Findings Consistent with Post-Op Diagnosis see operative report Specimens see operative report Drains none Complications none Disposition Accompanied Patient To Recovery: Yes Indications This 77-year-old female presented to the office with complaints of persisting right hip pain. She had tried conservative care measures without improvement. She was previously scheduled for this procedure but had to postpone due to other medical issues. She now elected to proceed with surgical invention in hopes of improving her pain and function. Preoperative imaging was obtained. Description of Procedure Patient was administered a spinal anesthetic and then taken to the operating room where she was given sedation. She was prepped and draped in the usual sterile fashion. Please see Dr. Grimaldo's operative report for specifics of the procedure. I was present for the entire case from initial patient positioning through final wound closure. Assistance was provided in tissue retraction, hemostasis, trial implant placement, final implant placement, and final wound closure. Patient was taken to the recovery room in satisfactory condition. I attest to the content of the Intraoperative Record and any orders documented therein. Any exceptions are noted below.
--- NOTE | 2022-04-01 10:58 | Progress Notes ---
DATE OF SERVICE: 04/01/2022 SUBJECTIVE: Postop check status post right total hip replacement. The patient is resting comfortabl y. Denies chest pain, shortness of breath, fever, chills, nausea, vomiting or headache. OBJECTIVE: VITAL SIGNS: Stable. She is afebrile. Neurovascular check is limited by spinal, but is starting to get function back. Postop x-ray looks excellent. ASSESSMENT: Doing well status post right total hip replacement. Would continue with care pathway. Potential discharge tomorrow if she does well overnight. Job ID: [id number]
--- NOTE | 2022-04-01 11:00 | XRay Report ---
SINGLE VIEW PELVIS CLINICAL HISTORY: Postoperative examination. FINDINGS: An AP view of the hips and lower pelvis is compared to study dated 11/03/2021. The skeletal structures are osteopenic. A bipolar right hip arthroplasty is in near anatomic alignment. A single c ortical lag screw transfixes the acetabular cup. No acute fracture is seen. Mild degenerative change is noted in the left hip. There is degenerative sclerosis of the sacroiliac joints. Skin clips, soft tissue edema, and subcutaneous gas overlying the right hip are expected postoperative findings. IMPRESSION: Expected postoperative findings status post right hip arthroplasty. No acute fracture is seen. Electronically signed by: Junior Goncalves M.D. 04/01/2022 10:58 AM
--- NOTE | 2022-04-01 11:12 | Operative Report (OR) ---
DATE OF PROCEDURE: 04/01/2022. SURGEON: Fish Grimaldo MD. SERVICE STATION OPERATOR: Stan Burgos PA-C. No resident or fellow available. PREOPERATIVE DIAGNOSIS: Osteoarthritis with severe arthrofibrosis, right hip. POSTOPERATIVE DIAGNOSIS: Osteoarthritis with severe arthrofibrosis, right hip. OPERATION PERFORMED: Right noncemented total hip replacement. SUMMARY OF IMPLANTS: Size 52 acetabular shell sector cup size 30 mm screw, 36 x 52 neutral liner, 1 standard Tri-Lock stem, 36+5 ceramic head. All DePuy implants. Tri-Lock system. Delta femora l head was a ceramic. ESTIMATED BLOOD LOSS: 100 mL or less. CRYSTALLOID: Per anesthesia. PATHOLOGY: Pending on bone. DVT PROPHYLAXIS: Per protocol. PERIOPERATIVE SITUATION: Medically cleared female with intractable hip pain, has comorbidities inclu ding recurrent urinary tract issues. Presently, she is cleared for surgery. At this point in time, wants to proceed with hip replacement as she has severe pain. X-rays reveal end-stage disease. DESCRIPTION OF PROCEDURE: The patient was appropriately identified, site verified, consent verified. Antibiotics were confirmed as being given. The patient was placed in the left lateral decubitus po sition after markers were placed on the limb for leg length assessment. She was then prepped and robby ped in the usual routine fashion. A posterior approach to the hip was made. Sharp dissection kennedy d through skin, blunt dissection down to fascia. This was then incised under direct vision. The vineet otibial band and gluteus jemal fascia were then split and a Charnley retractor placed. Care was ta kait to protect the sciatic nerve. The short external rotators were released and preserved. The caps ule was T'd and preserved. The hip was dislocated. The femoral neck was resected. There was grade IV disease on the femoral head and the acetabulum. Retractors were placed anteriorly and inferiorly along the acetabulum and then superiorly. The labrum was excised and serial reaming carried up to 52 and a 52 acetabulum impacted into appropriate anteversion and inclination and a 30 [address] x 6[address] aced with excellent purchase. The wound was then irrigated. The trial liner was seated. The femur was then flexed, internally rotated, delivered in the wound and the proximal femur prepared with box chipper, canal finder, lateralizing rasp and serial broaching up to a size 1, the size 1 Tri-Lock fit very well. Trial reduction was carried out with a +5 head, gave her essentially the same leg lengths she had preop. She was slightly long on that side. All implants were removed in the trial basis. Wound irrigated with Betadine Pulsavac, the hole elimin ator seated, the permanent liner seated, the permanent stem and head seated and then the hip reduced. It was stable in all planes, was very difficult to dislocate, which was excellent. The wound was t hen irrigated one final time. Care was taken to close the capsule with #2 Vicryl, the short external rotators with #2 Vicryl, to the trochanter through soft tissue and then the gluteus jemal fascia a nd IT band as well with #2 Vicryl as well. The fat was then closed with a deep layer with #2 Vicryl, the superficial layer 2-0 Vicryl. Orthomix was injected and then the skin closed with angélica, stain less steel clips. Appropriate dressing applied. The patient was transferred to recovery room in sat isfactory condition, having tolerated the procedure well. EBL was 100 mL or less. Crystalloid per a nesthesia. DVT prophylaxis with Coumadin. Pathology pending on bone. Job ID: [id number]
--- NOTE | 2022-04-01 11:38 | Anesthesiology Progress Note ---
Date of Service April 01, 2022 Anesthesia Post Procedure Vital Signs Vital Signs: Temp Pulse Pulse Resp BP Pulse Ox O2 Del Method 04/01/22 11:30 58 L 22 156/80 H 95 Room Air 04/01/22 11:00 59 L 13 145/69 H 100 Oxymask 04/01/22 10:50 60 13 142/66 H 100 Oxymask 04/01/22 11:20 61 14 141/94 H 97 Room Air 04/01/22 11:10 36.3 C L 91 H 20 142/83 H 97 Room Air 04/01/22 10:40 61 17 137/66 95 Oxymask 04/01/22 10:34 36.3 C L 72 16 127/62 99 Oxymask 04/01/22 07:18 37.5 C 63 20 173/82 H 98 Room Air O2 Flow Rate 04/01/22 11:30 04/01/22 11:00 2 04/01/22 10:50 2 04/01/22 11:20 04/01/22 11:10 04/01/22 10:40 3 04/01/22 10:34 5 04/01/22 07:18 Pain Intensity Right Hip: Pain Intensity: 8 Transfer of Care Handoff Completed per policy Notes Mental Status: alert / awake / arousable Patient Amnestic to Procedure: Yes Nausea / Vomiting: adequately controlled Pain: adequately controlled Airway Patency, RR, SpO2: stable & adequate BP & HR: stable & adequate Hydration State: stable & adequate Anesthetic Complications: no major complications apparent
[2022-04-01] MEDS ORDERED: METOCLOPRAMIDE HCL INJ 5 MG/ML 2 ML VIAL IV PRN (11:55)
[2022-04-01] MEDS ORDERED: SODIUM CHLORIDE 0.9% 1000ML 1,000 ML IV SCH (11:55)
[2022-04-01] MEDS ORDERED: bisacodyL 10 MG SUPP PR PRN (11:55)
[2022-04-01] MEDS ORDERED: HYDROmorphone INJ 0.5 MG/0.5 ML SYR IV PRN (11:55)
[2022-04-01] MEDS ORDERED: diphenhydrAMINE 50 MG/ML VIAL IV PRN (11:55)
[2022-04-01] MEDS ORDERED: ALUMINUM/MAGNESIUM SUSP 30 ML UDC PO PRN (11:55)
[2022-04-01] MEDS ORDERED: MAGNESIUM HYDROXIDE SUSP 30 ML UDC PO PRN (11:55)
[2022-04-01] MEDS: KETOROLAC TROMETHAMINE 15 MG/ML VIAL IV SCH ×3 (13:09→23:35)
[2022-04-01] MEDS: ACETAMINOPHEN 500 MG TAB PO SCH ×2 (13:09→21:16)
[2022-04-01] MEDS: ORTHO WARFARIN NOMOGRAM SCH (13:23)
[2022-04-01] MEDS: oxyCODONE HCL IR 5 MG TAB (IMMEDIATE RELEASE) PO PRN (14:33)
[2022-04-01] MEDS ORDERED: CHECK SCOPOLAMINE PATCH PLACEMENT SCH (16:00)
[2022-04-01] MEDS ORDERED: TRANEXAMIC ACID / 0.7% NACL 1,000 MG/100 ML BAG IV SCH (16:45)
[2022-04-01] MEDS: WARFARIN SOD 5 MG TAB PO SCH (16:51)
[2022-04-01] MEDS: LOVASTATIN 20 MG TAB PO SCH (16:51)
[2022-04-01] MEDS: FERROUS GLUCONATE 324 MG TAB PO SCH (16:52)
[2022-04-01] MEDS: ASCORBIC ACID 500 MG TAB PO SCH (16:52)
[2022-04-01] MEDS: ceFAZolin 2000MG 2,000 MG/15 ML SYR IV SCH (18:09)
[2022-04-01] MEDS ORDERED: METOPROLOL SUCC 25MG EXT REL TAB PO SCH (21:00)
[2022-04-01] MEDS ORDERED: SENNA 8.6 MG TAB PO SCH (21:00)
[2022-04-01] MEDS: DOCUSATE SODIUM 100 MG CAP PO SCH (21:16)
[2022-04-01] MEDS: FAMOTIDINE 20 MG TAB PO SCH (21:16)
[2022-04-02] MEDS: ceFAZolin 2000MG 2,000 MG/15 ML SYR IV SCH (00:21)
[2022-04-02] MEDS: ACETAMINOPHEN 500 MG TAB PO SCH ×2 (05:13→13:59)
[2022-04-02] MEDS: KETOROLAC TROMETHAMINE 15 MG/ML VIAL IV SCH (05:14)
[2022-04-02 06:23] LABS: Basophils # (auto) 0.01 K/uL (0-0.2); Basophils % (auto) 0.1 %; Eosinophils # (auto) 0.01 K/uL (0-0.50); Eosinophils % (auto) 0.1 %; Hematocrit (blood only) 32.9 % (34.1-44.9); Hemoglobin 10.8 g/dl (12.0-16.0); Immature Granulocytes # (auto) 0.07 K/uL (0.00-0.02); Immature Granulocytes % (auto) 0.6 %; Lymphocytes # (auto) 1.34 K/uL (1.2-3.4); Lymphocytes % (auto) 12.2 %; Mean Corpuscular Hemoglobin 31.4 pg (25.0-34.0); Mean Corpuscular Hgb Conc 32.8 g/dL (32.0-36.0); Mean Corpuscular Volume 95.6 fL (80.0-100.0); Mean Platelet Volume 10.3 fL (9.4-12.3); Monocytes # (auto) 1.08 K/uL (0.24-0.82); Monocytes % (auto) 9.8 %; Neutrophils # (auto) 8.48 K/uL (1.4-6.5); Neutrophils % (auto) 77.2 %; Platelet Count 282 K/uL (130-400); RDW Standard Deviation 45.4 fL (36.4-46.3); Red Blood Count 3.44 M/uL (3.93-5.22); White Blood Count 10.99 K/ul (4.8-10.8)
[2022-04-02 06:28] LABS: INR 1.1 (0.9-1.1); Prothrombin Time 11.6 Seconds (9.0-12.0)
[2022-04-02 06:46] LABS: BUN Creatinine Ratio 21.4 (10-20); Calcium 8.7 mg/dl (8.5-10.1); Creatinine Clr Calc Pharmacy 51.6 ml/min; Est GFR (African American) 78.2 ml/min; Est GFR (Non-African American) 67.5 ml/min; Potassium 3.9 mmol/L (3.5-5.1)
--- NOTE | 2022-04-02 07:47 | Progress Notes ---
DATE OF SERVICE: 04/02/2022 SUBJECTIVE: Postoperative day #1, status post right total hip replacement. The patient is doing well, has no major issues. She denies any chest pain, shortness of breath, fever, chills, nausea, vomiting or headache. OBJECTIVE: VITAL SIGNS: Stable. She is afebrile. Neurovascular check femoral sciatic nerve is normal. Wound dressing clean and dry. EXTREMITIES: Calves nontender. Hematocrit stable at 32. Rest of the laboratory works looks good. INR is in 1.1 range. I will give her Coumadin dose per nomogram. ASSESSMENT AND PLAN: Doing well status post right total hip replacement. We will continue with care pathway. Discharge home today after PT/OT. Coumadin dose before she leaves today. Job ID: [id number]
[2022-04-02] MEDS ORDERED: dexAMETHasone 10 MG in SYRINGE 0 ML IV SCH (08:00)
[2022-04-02] MEDS ORDERED: PERCOCET 5/325MG HOMEPACK PO ONE (08:26)
[2022-04-02] MEDS: FAMOTIDINE 20 MG TAB PO SCH (08:46)
[2022-04-02] MEDS: DOCUSATE SODIUM 100 MG CAP PO SCH (08:47)
[2022-04-02] MEDS: ASCORBIC ACID 500 MG TAB PO SCH ×2 (08:47→16:40)
[2022-04-02] MEDS: oxyCODONE HCL IR 5 MG TAB (IMMEDIATE RELEASE) PO PRN ×2 (08:48→16:38)
[2022-04-02] MEDS: FERROUS GLUCONATE 324 MG TAB PO SCH ×2 (08:48→16:40)
[2022-04-02] MEDS ORDERED: WARFARIN SOD 5 MG TAB PO SCH (09:00)
[2022-04-02] MEDS ORDERED: TRIAMCINOLONE ACET 0.1% OINT 15 GM TUBE TOP SCH (09:00)
[2022-04-02] MEDS ORDERED: metroNIDAZOLE 0.75% TOPICAL GEL 45 GM TUBE TOP SCH (09:00)
[2022-04-02] MEDS ORDERED: MULTIVITAMIN TAB PO SCH (09:00)
--- NOTE | 2022-04-02 09:08 | Orthopedic Progress Note ---
Date of Service April 02, 2022 Assessment & Plan (1) S/P total hip arthroplasty: Plan: Pt will be d/c home today with home services She will have her dose of warfarin prior to d/c today. She has been sent a prescription for this for home. I contacted the pharmacy in regards to being able to get her pain medication and coumadin. The pharmacy is closed. After discussing this with the patient We will send her home with a home dose pack for her narcotic medication. Pt is agreeable to this. She will be able to pick her prescriptions up at the pharmacy tomorrow. She was advised on dosage, risks, and s/e of each. She was advised on use of the abduction pillow and her hip precautions. She has written instructions and a f/u appt set. She was adivsed to call the office with any concerns. Pt verbalized understanding and is in agreement with plan. Admission and Anticipated Discharge Date Admission Date: April 01, 2022 Subjective Pt was seen bedside this am. Dr. Grimaldo was present and had just completed her dressing change. Discussed w/ pt her needs at home as far as equipment. she has supervisor inspecting, walker and raised toilet seat. She states her pain is managed. She is concerned about her pain medication being available at her pharmacy of choice, [facility]. Pt denies any CP, SOB, calf pain SOB or CP Review of Systems Review of Systems: please refer to H&P Physical Exam Physical Exam: General: Pt is alert and oriented x3 NAD Musculoskeletal and Integumentary: Dressing is intact neg for drainage. please refer to Dr. Grimaldo's note/exam Results & Data ([facility]) Vital Signs (Past 12 Hours) Vital Signs Temp Pulse Pulse Resp BP Pulse Ox O2 Del Method 04/02/22 07:27 36.7 C 51 L 16 115/66 98 Room Air 04/02/22 03:02 36.6 C 60 18 102/64 95 Room Air 04/01/22 22:43 36.6 C 60 16 116/64 95 Room Air
[2022-04-02] MEDS: ORTHO WARFARIN NOMOGRAM SCH (11:47)
[2022-04-02] MEDS: WARFARIN SOD 5 MG TAB PO SCH (11:47)
[2022-04-02] MEDS: LOVASTATIN 20 MG TAB PO SCH (16:39)
== END 2022-04-02 17:21 ==
LOC: PACUINP 06:14 → ASU 06:14 → 3N 12:28